=== PATIENT | male | born 1960 | race Caucasian/White ===

== ENCOUNTER 2018-04-16 11:08 | Emergency (ER) | payer MEDICAID, OTHER ==
[~2018-04-16] VITALS: Ht 180.3 cm; Wt 104.1 kg
[~2018-04-16 11:08] MED LIST: LOSA25TA5 PO; METH-356 PO
[2018-04-16] MEDS ORDERED: CEFAZOLIN 1,000 MG IM ONE (11:30)
[2018-04-16] MEDS ORDERED: DIPH,PERTUSS(ACELL),TET VAC/PF 0.5 ML IM-VACC ONE ×2 (12:30→13:05)
[2018-04-16] MEDS ORDERED: LIDOCAINE 2%, 20ML SQ ONE (13:00)
[2018-04-16] MEDS ORDERED: LIDOCAINE-MPF 2% ,5ML ONE ×2 (13:04→13:14)
[2018-04-16] MEDS ORDERED: CEFAZOLIN 1,000 MG ONE (13:05)
[2018-04-16] MEDS ORDERED: MICROFIBRILLAR COLLAGEN 1 GM TP ONE ×2 (14:41→15:00)
[2018-04-16 15:21] VITALS: BP 150/114
== END 2018-04-16 15:47 | disposition home or self-care (01) ==
LOC: ED 12:44
DX: S61.212A Laceration without foreign body of right middle finger without damage to nail, initial encounter (principal); S61.216A Laceration without foreign body of right little finger without damage to nail, initial encounter; I10 Essential (primary) hypertension; X58.XXXA Exposure to other specified factors, initial encounter; Y93.89 Activity, other specified; Y92.009 Unspecified place in unspecified non-institutional (private) residence as the place of occurrence of the external cause; Y99.8 Other external cause status
CPT/HCPCS: 12041; 73140; 90471; 90715; 96372; 99284; J0690

== ENCOUNTER 2019-09-06 08:33 | Outpatient (CLI) | payer MEDICARE ==
[~2019-09-06 08:33] MED LIST changes: +LOSA25TA25 PO; -LOSA25TA5 PO; -METH-356 PO; +METH10TA2 PO
== END 2019-09-06 23:59 | disposition home or self-care (01) ==
LOC: CFH 08:33
PROVIDERS: ATTEND Internal Medicine Cardiovascular Disease
DX: R07.9 Chest pain, unspecified (principal); I10 Essential (primary) hypertension; Z82.49 Family history of ischemic heart disease and other diseases of the circulatory system
CPT/HCPCS: 93306

== ENCOUNTER 2019-12-02 10:21 | Outpatient (CLI) | payer MEDICARE ==
[2019-12-02 13:17] LABS: ALBUMIN 4.2 g/dL (3.4-5.0); CHLORIDE 107 mmol/L (98-107)
[2019-12-02 13:27] LABS: ALANINE AMINOTRANSFERASE 21 U/L (12-78); ALKALINE PHOSPHATASE 71 U/L (45-117); ANION GAP 8 mmol/L (5-15); BILIRUBIN,TOTAL 0.8 mg/dL (0.2-1.0); CALCIUM 9.2 mg/dL (8.5-10.1); CHOL/HDL RATIO 5.1; CHOLESTEROL, TOTAL 157 mg/dL (140-239); HDL CHOL % 20 % (26-37); HDL CHOLESTEROL (DIRECT) 31 mg/dL (40-60); LDL CHOLESTEROL,CALCULATED 110 mg/dL (54-169); LDL/HDL RATIO 3.5 (0.5-3.0); T4 (THYROXINE) 11.6 mcg/dL (4.5-12.1); TOTAL PROTEIN 7.8 g/dL (6.4-8.2); TRIGLYCERIDES 80 mg/dL (50-200); VLDL CHOLESTEROL 16 mg/dL (0-25)
== END 2019-12-02 23:59 | disposition home or self-care (01) ==
LOC: CFH 10:21
PROVIDERS: ATTEND Physician Assistant Medical
DX: R97.20 Elevated prostate specific antigen [PSA] (principal); I10 Essential (primary) hypertension; E78.2 Mixed hyperlipidemia; M25.532 Pain in left wrist; M25.572 Pain in left ankle and joints of left foot; R07.9 Chest pain, unspecified; Z82.49 Family history of ischemic heart disease and other diseases of the circulatory system; Z11.4 Encounter for screening for human immunodeficiency virus [HIV]; Z11.3 Encounter for screening for infections with a predominantly sexual mode of transmission; Z79.899 Other long term (current) drug therapy
CPT/HCPCS: 36415; 80053; 80061; 80074; 83036; 84153; 84154; 84436; 84443; 84481; 87389; 87535

== ENCOUNTER → 2019-12-05 | Outpatient (CLI) | payer MEDICARE ==
[~2019-12-05] MED LIST changes: +REGADENOSON 0.4 MG/5 ML SYRINGE ONE
== END | disposition home or self-care (01) ==
LOC: CFH 08:15
PROVIDERS: ATTEND Physician Assistant Medical
DX: I10 Essential (primary) hypertension (principal); R07.9 Chest pain, unspecified
CPT/HCPCS: 78452; 93017; A9502; J2785